=== PATIENT | female | born 1980 | race African-American/Black ===

== ENCOUNTER 2019-03-18 12:29 | Emergency (ER) | payer SELFPAY ==
[2019-03-18 12:36] VITALS: BP 112/68
--- NOTE | 2019-03-18 13:27 | ER Document Report ---
HPI - HPI Patient complains to provider of: possible abscess Time Seen by Provider: 03/18/19 12:36 Onset: Other - over 30 days Onset/Duration: Gradual Quality of pain: Achy Pain Level: 2 Context: This 39 year old male presents to the ED for c/o facial swelling to the right side of his jaw for over 30 days. Reports it seems to be increasing in size of the last couple days. He reports he had a fever last night. Denies dental injury denies history of MRSA. Reports it just started swelling over a month ago. Associated Symptoms: Fever - last night Exacerbated by: Denies Relieved by: Denies Similar symptoms previously: No Recently seen / treated by doctor: No - REPRODUCTIVE Reproductive: DENIES: : Past Medical History - General Information source: Patient - Social History Smoking Status: Current Every Day Smoker Cigarette use (# per day): Yes Frequency of alcohol use: None Drug Abuse: None Lives with: Family Family History: None Patient has suicidal ideation: No Patient has homicidal ideation: No - Medical History Medical History: Negative Surgical Hx: Negative Vertical Provider Document - CONSTITUTIONAL Agree With Documented VS: Yes Exam Limitations: No Limitations, Physical Impairment General Appearance: No Apparent Distress - INFECTION CONTROL TRAVEL OUTSIDE OF THE [place] IN LAST 30 DAYS: No - HEENT HEENT: Atraumatic, Normocephalic. negative: Conjuctival Injection, Pharyngeal Erythema, Tympanic Membrane Red - NECK Neck: Normal Inspection, Supple. negative: Lymphadenopathy-Left, Lymphadenopathy-Right - RESPIRATORY Respiratory: Breath Sounds Normal, No Respiratory Distress - CARDIOVASCULAR Cardiovascular: Regular Rate - MUSCULOSKELETAL/EXTREMETIES Musculoskeletal/Extremeties: CLARA VALE - NEURO Level of Consciousness: Awake, Alert, Appropriate - DERM Integumentary: Warm, Dry Adult Front & Back Diagram: 1 - soft swelling ~11/2 cm around, no fluctuance, no induration, no erythema/no warmth, no pustule Course - Re-evaluation Re-evalutation: 03/18/19 15:22 This 39-year-old male with swelling on the right side of his jaw. Does not appear to be an abscess. I consulted Dr. Manzo who came over looked at it and agrees is probably some type of cyst. Patient was instructed that he needs follow-up with j2ee consultant or plastic surgeon to have a removal. He was also instructed on signs and symptoms of infection. He was instructed to return to the emergency department should the area become red warm more painful pustule. He verbalized understanding to all instructions. Dictation of this chart was performed using voice recognition software; therefore, there may be some unintended grammatical errors. 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
== END 2019-03-18 13:30 | disposition home or self-care (01) ==
LOC: ER 12:29
DX: L72.8 Other follicular cysts of the skin and subcutaneous tissue (principal); R22.0 Localized swelling, mass and lump, head; F17.210 Nicotine dependence, cigarettes, uncomplicated
CPT/HCPCS: 99283

== ENCOUNTER 2019-10-05 12:59 | Emergency (ER) | payer OTHER ==
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
[2019-10-05 14:37] VITALS: BP 126/75
== END 2019-10-05 14:38 | disposition home or self-care (01) ==
LOC: ER 12:59 → EDSEX 12:59 → ER 14:38
DX: S00.511A Abrasion of lip, initial encounter (principal); S00.81XA Abrasion of other part of head, initial encounter; S60.512A Abrasion of left hand, initial encounter; S60.511A Abrasion of right hand, initial encounter; S50.311A Abrasion of right elbow, initial encounter; S50.312A Abrasion of left elbow, initial encounter; S80.211A Abrasion, right knee, initial encounter; R07.81 Pleurodynia; R07.1 Chest pain on breathing; V28.4XXA Motorcycle driver injured in noncollision transport accident in traffic accident, initial encounter; F17.210 Nicotine dependence, cigarettes, uncomplicated
CPT/HCPCS: 70150; 99283